=== PATIENT | female | born 1995 | race Caucasian/White ===

== ENCOUNTER 2018-12-15 11:54 | Emergency (ER) | payer OTHER, MEDICAID, SELFPAY ==
[2018-12-15 12:00] VITALS: BP 104/42; PULSE 87; RESP 12; TEMP 36.7; O2SAT 98
--- NOTE | 2018-12-15 12:05 | ED.ABDPAIN ---
HPI - Abdominal Pain General Chief Complaint: Abdominal Pain Stated Complaint: right side pain Time Seen by Provider: 12/15/18 11:56 Source: patient and EMS Mode of arrival: EMS Limitations: no limitations History of Present Illness HPI narrative: This is a 23-year-old female comes emergency department with complaint of right lower abdominal pain for about a week. Patient states it has been increasing in intensity. She denies any flank pain. Patient states it is intermittently sharp. Patient has not had any fevers she is aware of. She has had some nausea, she had 1 episode of vomiting. She has had normal bowel movements. She has had no dysuria frequency or urgency. Denies any vaginal bleeding or discharge. Patient has a history of endometriosis eczema and depression anxiety she had lab work at [facility] which showed a white count of 11.1, patient had negative urine for and dip. No major abnormalities on her chemistries. They did not have CT available and patient was transferred here for imaging and final disposition. Patient states she did received Toradol and Zofran with minimal improvement. She received fentanyl just prior to leaving the hospital which did make her quite sleepy although she continues to state that her pain was 10/10 and then would fall back asleep. Related Data Home Medications Medication Instructions Recorded Confirmed cetirizine 10 mg PO DAILY 12/15/18 12/15/18 epinephrine 0.3 mg IM PRN PRN 12/15/18 12/15/18 ferrous gluconate 324 mg PO BID 12/15/18 12/15/18 fluticasone propionate 1 spray INTRANASAL DAILY 12/15/18 12/15/18 levonorgestrel-ethinyl estrad 1 tab PO DAILY 12/15/18 12/15/18 [Devan (28)] sertraline 200 mg PO DAILY 12/15/18 Previous Rx's Medication Instructions Recorded hydrocodone-acetaminophen [[place]] 1 tab PO Q6H PRN #10 tab 12/15/18 Allergies Allergy/AdvReac Type Severity Reaction Status Date / Time garlic Allergy Severe Anaphylaxis Verified 12/15/18 12:02 Review of Systems Review of Systems ROS Unobtainable: All systems reviewed & are unremarkable except as noted in HPI and below Constitutional Constitutional: Denies chills, Denies fever(s), Denies lethargy and Denies weakness Cardiovascular Cardiovascular: Denies chest pain and Denies dyspnea Respiratory Respiratory: Denies dyspnea Gastrointestinal Gastrointestinal: Reports abdominal pain (Right lower quadrant pain), Denies melena, Denies hematochezia, Denies change in bowel habits, Denies change in stool character, Denies diarrhea, Reports nausea and Reports vomiting (X1) Genitourinary Genitourinary: Reports as per HPI, Denies abnormal vaginal bleeding, Denies hematuria, Denies urinary frequency, Denies dysuria, Denies pelvic pain, Denies flank pain, Denies urinary incontinence, Denies urinary hesitancy, Denies urinary urgency, Denies vaginal discharge and Denies vaginal odor Musculoskeletal Musculoskeletal: Denies back pain Neurologic Neurologic: Denies weakness [facility] Social History (Updated 12/15/18 @ 12:17 by Migdalia Ya DO) Smoking Status: Never smoker alcohol intake: current substance use type: does not use Exam Narrative Exam Narrative: GENERAL: Alert and oriented x three, morbidly obese female in moderate distress. HEENT: Head normocephalic, atraumatic, EOMI, pupils reactive, face symmetric, moist mucous membranes NECK: Supple, full range of motion CARDIOVASCULAR: Regular rate and rhythm without murmurs, rubs or gallops. RESPIRATORY: Breath sounds equal bilaterally, no wheezes rales or rhonchi. ABDOMEN: Soft, positive right lower quadrant tenderness. Normoactive bowel sounds all 4 quadrants. No guarding or rebound, rigidity, no mass. No hernia noted. : No CVA tenderness EXTREMITIES: Normal range of motion, no clubbing or edema. Neurovascularly intact NEUROLOGICAL: Cranial nerves II through XII grossly intact. Moving all extremities SKIN: Warm, dry, no petechiae, no rashes or lesions. Initial Vital Signs Initial Vital Signs: Vital Signs Temperature 98.1 F 12/15/18 12:00 Pulse Rate 87 12/15/18 12:00 Respiratory Rate 12 12/15/18 12:00 Blood Pressure 104/42 L 12/15/18 12:00 Pulse Oximetry 98 12/15/18 12:00 Course Orders Ordered: ED Orders 12/15/18 12:23 CT abdomen pelvis w con Stat Discontinued Medications Sodium Chloride (Normal Saline 0.9%) 1,000 mls @ 150 mls/hr IV CONT ENZO Last Infusion: 12/15/18 13:23 Dose: 0 mls/hr Documented by: Admin: 12/15/18 12:21 Dose: 150 mls/hr Documented by: SEGUN Morphine Sulfate (Morphine) 4 mg IV NOW ONE Stop: 12/15/18 12:02 Last Admin: 12/15/18 12:21 Dose: 4 mg Documented by: SEGUN Vital Signs Vital signs: Vital Signs - 8 hr 12/15/18 12:00 12/15/18 13:20 12/15/18 13:23 Temperature 98.1 F Pulse Rate 87 71 67 Respiratory Rate 12 15 Blood Pressure 104/42 L 119/70 Blood Pressure [Right Arm] 119/70 Pulse Oximetry 98 97 MDM - Abdominal Pain Lab Data Attestation: I reviewed the patient's lab results. Lab results narrative: CBC shows a low white count of 11, hemoglobin is 12.2 with a crit of 39, platelets are 399. Patient has lymphocytes elevated at 4.2. CMP shows sodium of 142, potassium of 4, chloride 105 and CO2 of 27 BUN is 13 with creatinine 0.8. Glucose is 93, LFTs are in normal range with a normal lipase. Patient has normal urine with no nitrates, no leuks no bilirubin or occult blood. No ketones or glucose is noted specific gravity is 1.015. And urine pH is 7. HCG is negative. Imaging Data US - abdomen: Radiologist's impression: Patient had outside bedside by EMPultrasound report preliminary is cholelithiasis without cholecystitis and fatty liver. CT scan - abdomen: Radiologist's impression: [place] [address] CT Scan Report Signed Patient: Jameson Patel [facility]#: [id number] : 1995Acct:[id number] Age/Sex: 23 / FDate of Service: 12/15/18 Loc: ED Accession Number: [id number] Procedure: CT abdomen pelvis w con Ordering Provider: Migdalia aY D.O. PROCEDURE: CT ABDOMEN PELVIS W CON INDICATIONS: RLQ pain, Creatinni 0.8 gfr 87, neg preg @ [place] TECHNIQUE: After the administration of intravenous contrast, 5 mm thick sections acquired from the diaphragm to the symphysis. 5 mm coronal and sagittal reformats were acquired. For radiation dose reduction, the following was used: automated exposure control, adjustment of mA and/or kV according to patient size. COMPARISON: None. FINDINGS: Image quality: Excellent. ABDOMEN: Lung bases: Lung bases are clear. Heart size is normal. Solid organs: Liver is normal in size and enhancement. Diffuse fatty infiltration of the liver. Gallbladder contains a calcified gallstone. Biliary system is non dilated. Pancreas enhances normally. Spleen is normal in size and enhancement. No adrenal nodules. Kidneys demonstrate normal size and enhancement, without hydronephrosis. Peritoneum and bowel: Bowel loops demonstrate normal wall thickness and caliber. No free fluid or air. The appendix is normal. Nodes and vessels: No retroperitoneal or mesenteric adenopathy by size criteria. Aorta and inferior vena cava are normal in size. Miscellaneous: A small fat containing umbilical hernia. PELVIS: Genitourinary: Bladder wall thickness is normal. Miscellaneous: No inguinal hernias or adenopathy. Bones: No suspicious bony lesions. No vertebral body compression fractures. IMPRESSION: 1. No acute disease process. 2. The appendix is normal. 3. No free fluid or free air. 4. No dilated loops of bowel. 5. Hepatic steatosis. 6. Cholelithiasis. Dictated by: Natty Pham MD, PhD on 12/15/2018 at 12:17 Approved by: Natty Pham MD, PhD on 12/15/2018 at 12:21 [facility] Narrative Medical decision making narrative: Patient has cholelithiasis on her CT but no signs of cholecystitis. LFTs and abdominal labs are normal. White count is 11, patient has been afebrile for at least 12+ hours at the other hospital as well as here. She is tender really in her right lower quadrant only minimally in her right upper quadrant. So my suspicion that her gallstones is causing her pain is lower. She states she has been diagnosed with endometriosis in the past this is potentially causing her pain but no other acute intra-abdominal findings are found today. She does have some hepatic steatosis which she was aware of. Discussed with patient and family we did give her referral for General surgery for her gallstones. Patient was given a short-term script for narcotic pain medication as well as recommendations to continue ibuprofen as needed and reasons to return emergently. Discussed findings with General surgery, they will follow with patient as outpatient. Discharge Plan Departure Patient Disposition: Home Clinical Impression: Abdominal pain, Hepatic steatosis, Cholelithiases Discharge Date/Time: 12/15/18 13:24 Instructions: DI for Gallstones, DI for Nonalcoholic Fatty Liver Disease Activity Restrictions/Additional Instructions: Follow up with general surgery in the next week for recheck. Call for an appointment. You may take ibuprofen up to 800mg every 8 hours as needed for pain. You may take medication as prescribed for pain, this medication can make you sleepy do not drive, perform hazardous activities or make any major decisions while taking it. Return to the emergency department for fevers greater than 100.4 F, persistent vomiting, lightheadedness, passing out, black or bloody stools or other new or concerning symptoms. Prescriptions: New hydrocodone-acetaminophen [[place]] 5-325 mg tablet 1 tab PO Q6H PRN (Reason: pain) Qty: 10 RF: 0 No Action cetirizine 10 mg tablet 10 mg PO DAILY RF: 0 sertraline 100 mg tablet 200 mg PO DAILY RF: 0 levonorgestrel-ethinyl estrad [[place] (28)] 0.15-0.03 mg tablet 1 tab PO DAILY RF: 0 epinephrine 0.3 mg/0.3 mL auto-injector 0.3 mg IM PRN PRN (Reason: Allergic Reaction) RF: 0 fluticasone propionate 50 mcg/actuation spray,suspension 1 spray INTRANASAL DAILY RF: 0 ferrous gluconate 324 mg (38 mg iron) tablet 324 mg PO BID RF: 0 Referrals: Pete Tian MD [Physician] -
[2018-12-15] MEDS: MORPHINE 4 MG/ML INJ IV (12:21)
[2018-12-15] MEDS: SODIUM CHLORIDE 0.9% 1,000 ML 150 ML IV (12:21)
--- NOTE | 2018-12-15 12:23 | DI.CT.S_ITS ---
PROCEDURE: CT ABDOMEN PELVIS W CON INDICATIONS: RLQ pain, Creatinni 0.8 gfr 87, neg preg @ [place] TECHNIQUE: After the administration of intravenous contrast, 5 mm thick sections acquired from the diaphragm to the symphysis. 5 mm coronal and sagittal reformats were acquired. For radiation dose reduction, the following was used: automated exposure control, adjustment of mA and/or kV according to patient size. COMPARISON: None. FINDINGS: Image quality: Excellent. ABDOMEN: Lung bases: Lung bases are clear. Heart size is normal. Solid organs: Liver is normal in size and enhancement. Diffuse fatty infiltration of the liver. Gallbladder contains a calcified gallstone. Biliary system is non dilated. Pancreas enhances normally. Spleen is normal in size and enhancement. No adrenal nodules. Kidneys demonstrate normal size and enhancement, without hydronephrosis. Peritoneum and bowel: Bowel loops demonstrate normal wall thickness and caliber. No free fluid or air. The appendix is normal. Nodes and vessels: No retroperitoneal or mesenteric adenopathy by size criteria. Aorta and inferior vena cava are normal in size. Miscellaneous: A small fat containing umbilical hernia. PELVIS: Genitourinary: Bladder wall thickness is normal. Miscellaneous: No inguinal hernias or adenopathy. Bones: No suspicious bony lesions. No vertebral body compression fractures. IMPRESSION: 1. No acute disease process. 2. The appendix is normal. 3. No free fluid or free air. 4. No dilated loops of bowel. 5. Hepatic steatosis. 6. Cholelithiasis. Dictated by: Natty Pham MD, PhD on 12/15/2018 at 12:17 Approved by: Natty Pham MD, PhD on 12/15/2018 at 12:21
[2018-12-15 13:20] VITALS: BP 119/70; PULSE 71
[2018-12-15 13:23] VITALS: BP 119/70; PULSE 67; RESP 15; O2SAT 97
== END 2018-12-15 13:24 | disposition home or self-care (01) ==
PROVIDERS: Emergency Provider Emergency Medicine
DX: K76.0 Fatty (change of) liver, not elsewhere classified (principal); K80.20 Calculus of gallbladder without cholecystitis without obstruction
CPT/HCPCS: 74177; 96361; 96374; 99283; 99285; J2270; Q9967

== ENCOUNTER 2018-12-18 15:21 | Emergency (ER) | payer OTHER, MEDICAID, SELFPAY ==
[2018-12-18 15:41] VITALS: BP 140/90; PULSE 71; RESP 16; TEMP 37.6; O2SAT 99; BMI 47.9
[2018-12-18 16:14] LABS: Bacteria Urine None Seen
[2018-12-18 16:25] LABS: Culture Indicated Urine Specimen Cultured; RBC Urine 30-100/HPF (0-5/HPF); Squamous Epithelial Cell Urine 0-1 /HPF (0-5/HPF); WBC Urine 0-1/HPF (0-5/HPF)
[2018-12-18 16:45] LABS: Add Manual Diff / Slide Review NO; Basophils Absolute Auto 100 /uL (0-100); Basophils Percent Auto 0.6 % (0-2); Eosinophils Absolute Auto 200 /uL (0-450); Eosinophils Percent Auto 1.8 % (2-4); Hematocrit 38.6 % (36-46); Hemoglobin 12.6 g/dL (12.0-16.0); Lymphocytes Absolute Auto 3000 /uL (1100-4500); Lymphocytes Percent Auto 32.9 % (25-40); Mean Corpuscular HGB Conc 32.5 % (30-36); Mean Corpuscular Hemoglobin 24.6 PG (26-34); Mean Corpuscular Volume 75.6 fL (80-100); Monocytes Absolute Auto 600 /uL (0-900); Monocytes Percent Auto 6.4 % (3-14); Neutrophils Absolute Auto 5400 /uL (1500-7000); Neutrophils Percent Auto 58.3 % (50-75); Platelet Count 410 X10^3/uL (150-400); Red Cell Distribution Width 16.3 % (11.6-14.8); White Blood Cell Count 9.3 X10^3/uL (4.5-11.0)
[2018-12-18] MEDS: ONDANSETRON 4 MG/2 ML INJ IV (16:48)
[2018-12-18] MEDS: SODIUM CHLORIDE 0.9% 1,000 ML 1000 ML IV (16:48)
[2018-12-18 16:50] LABS: INR 1.1 (0.9-1.3); Prothrombin Time 12.8 SECONDS (10.1-12.7)
[2018-12-18 16:53] LABS: PTT Partial Thromboplastin Tim 40 SECONDS (26.4-36.2)
[2018-12-18 16:54] LABS: Alanine Aminotransferase 32 IU/L (9-52); Albumin 4.5 g/dL (3.5-5.0); Albumin Globulin Ratio 1.3 (1.0-2.8); Alkaline Phosphatase 116 U/L (38-126); Aspartate Aminotransferase 33 IU/L (14-36); BUN Creatinine Ratio 11.4 (6-22); Bilirubin Total 0.5 mg/dL (0.2-1.3); Blood Urea Nitrogen 8 mg/dL (7-17); Carbon Dioxide 27 mmol/L (22-32); Chloride 102 mmol/L (98-107); Estimated Glomerular Filt Rate > 60.0 mL/min (>60); Globulin 3.4 g/dL (1.7-4.1); Glucose 87 mg/dL (70-100); HEMOLYSIS < 15 (0-50); Lipase 58 U/L (23-300); Potassium 3.9 mmol/L (3.4-5.1); Sodium 142 mmol/L (137-145); Total Protein 7.9 g/dL (6.3-8.2)
--- NOTE | 2018-12-18 17:02 | ED_ITS ---
HPI - Abdominal Pain General Chief Complaint: Abdominal Pain Stated Complaint: right side abdominal pain Time Seen by Provider: 12/18/18 17:01 Source: patient Mode of arrival: ambulatory Limitations: no limitations History of Present Illness HPI narrative: Patient is a 23-year-old female who presents with right-sided lateral pain ongoing for 1 week. She was seen evaluated at [facility] she actually had a CT here because our CT scanner was down. No sign of appendicitis or kidney stone she was given hydrocodone to go home with she continues to have pain. It does not radiate is at hurts every time she moves breathes or coughs. She was noted to have cholelithiasis but she does not have any right upper q uadrant pain. MD complaint: abdominal pain Onset (ago): week(s) Pain Consistency: constant Related Data Home Medications Medication Instructions Recorded Confirmed cetirizine 10 mg PO DAILY 12/15/18 12/15/18 epinephrine 0.3 mg IM PRN PRN 12/15/18 12/15/18 ferrous gluconate 324 mg PO BID 12/15/18 12/15/18 fluticasone propionate 1 spray INTRANASAL DAILY 12/15/18 12/15/18 levonorgestrel-ethinyl estrad 1 tab PO DAILY 12/15/18 12/15/18 [Devan (28)] sertraline 200 mg PO DAILY 12/15/18 Previous Rx's Medication Instructions Recorded hydrocodone-acetaminophen [[place]] 1 tab PO Q6H PRN #10 tab 12/15/18 Allergies Allergy/AdvReac Type Severity Reaction Status Date / Time garlic Allergy Severe Anaphylaxis Verified 12/15/18 12:02 Review of Systems Review of Systems Narrative: GENERAL: Denies chills, fatigue, malaise, fever, sweats, travel HEENT: Denies sinus pain, ear pain, sore throat, difficulty swallowing, neck pain RESPIRATORY: Denies dyspnea, cough, wheezing, hemoptysis, sputum. CARDIOVASCULAR: Denies chest pain, palpitations, orthopnea, edema GASTROINTESTINAL: See HPI : Denies dysuria, frequency, incontinence, hematuria, urinary retention, flank pain. MUSCULOSKELETAL: Denies weakness, joint pain, or bony pain SKIN: No rash, no erythema, no pruritus NEUROLOGIC: Denies weakness, dizziness, headache, numbness, change in speech, confusion PSYCHIATRIC: No concerning psychosocial issues. 12 point review of systems is negative except for those stated above and HPI [facility] Social History (Updated 12/15/18 @ 12:17 by Migdalia Ya DO) Smoking Status: Never smoker alcohol intake: current substance use type: does not use Exam Initial Vital Signs Initial Vital Signs: Vital Signs Temperature 99.7 F H 12/18/18 15:41 Pulse Rate 71 12/18/18 15:41 Respiratory Rate 16 12/18/18 15:41 Blood Pressure 140/90 12/18/18 15:41 Pulse Oximetry 99 12/18/18 15:41 GENERAL: Overweight well-appearing young female and in no acute distress. HEENT: Head atraumatic,EOMI, pupils reactive, face symmetric CARDIOVASCULAR: Regular rate and rhythm without murmurs, rubs or gallops. RESPIRATORY: Breath sounds equal bilaterally, no wheezes rales or rhonchi. ABDOMEN: Soft, pain right lateral sided no right lower quadrant pain no guarding no rebound no right upper quadrant pain negative Buck sign : No CVA tenderness EXTREMITIES: Normal range of motion, no clubbing or edema. Neurovascularly intact NEUROLOGICAL: Alert and oriented x4.Normal gait and speech. Cranial nerves II through XII grossly intact. SKIN: Warm, dry, no laceration, no petechiae, no rashes or lesions. Course Orders Ordered: ED Orders 12/18/18 16:00 Urine Culture Stat Urine Microscopic Stat 12/18/18 16:34 Complete Blood Count AUTO DIFF Stat Comprehensive Metabolic Panel Stat Lipase Stat Partial Thromboplastin Time Stat Prothrombin Time INR Stat Discontinued Medications Sodium Chloride (Normal Saline 0.9%) 1,000 mls @ 1,000 mls/hr IV BOLUS ONE Stop: 12/18/18 17:19 Last Admin: 12/18/18 16:48 Dose: 1,000 mls/hr Documented by: MIHIR Ketorolac Tromethamine (Toradol) 30 mg IV NOW ONE Stop: 12/18/18 17:07 Last Admin: 12/18/18 17:23 Dose: 30 mg Documented by: BRISSA Morphine Sulfate (Morphine) 4 mg IV NOW ONE Stop: 12/18/18 18:05 Last Admin: 12/18/18 18:07 Dose: 4 mg Documented by: MIHIR Ondansetron HCl (Zofran) 4 mg IV NOW ONE Stop: 12/18/18 16:20 Last Admin: 12/18/18 16:48 Dose: 4 mg Documented by: HFARRINGTO Vital Signs Vital signs: Vital Signs - 8 hr 12/18/18 15:41 12/18/18 18:41 Temperature 99.7 F H Pulse Rate 71 88 Respiratory Rate 16 19 Blood Pressure 140/90 138/92 H Pulse Oximetry 99 97 MDM - Abdominal Pain Lab Data Attestation: I reviewed the patient's lab results. Result diagrams: 12/18/18 16:34 12/18/18 16:34 Labs: Lab Results 12/18/18 12/18/18 12/18/18 Range/Units 16:00 16:34 16:34 WBC 9.3 (4.5-11.0) X10^3/uL RBC 5.10 (4.0-5.2) X10^6/uL Hgb 12.6 (12.0-16.0) g/dL Hct 38.6 (36-46) % MCV 75.6 L (80-100) fL MCH 24.6 L (26-34) PG MCHC 32.5 (30-36) % RDW 16.3 H (11.6-14.8) % Plt Count 410 H (150-400) X10^3/uL Neut % (Auto) 58.3 (50-75) % Lymph % (Auto) 32.9 (25-40) % Parmer % (Auto) 6.4 (3-14) % Eos % (Auto) 1.8 L (2-4) % Baso % (Auto) 0.6 (0-2) % Neut # (Auto) 5400 (4803-6472) /uL Lymph # (Auto) 3000 (2612-6310) /uL Parmer # (Auto) 600 (0-900) /uL Eos # (Auto) 200 (0-450) /uL Baso # (Auto) 100 (0-100) /uL PT 12.8 H (10.1-12.7) SECONDS INR 1.1 (0.9-1.3) APTT 40 H (26.4-36.2) SECONDS Sodium (137-145) mmol/L Potassium (3.4-5.1) mmol/L Chloride (98-107) mmol/L Carbon Dioxide (22-32) mmol/L BUN (7-17) mg/dL Creatinine (0.52-1.04) mg/dL Estimated GFR (>60) mL/min BUN/Creatinine Ratio (6-22) Glucose (70-100) mg/dL Calcium (8.4-10.2) mg/dL Total Bilirubin (0.2-1.3) mg/dL AST (14-36) IU/L ALT (9-52) IU/L Alkaline Phosphatase (38-126) U/L Total Protein (6.3-8.2) g/dL Albumin (3.5-5.0) g/dL Globulin (1.7-4.1) g/dL Albumin/Globulin Ratio (1.0-2.8) Lipase (23-300) U/L Urine RBC 30-100/hpf H (0-5/HPF) Urine WBC 0-1/hpf (0-5/HPF) Ur Squamous Epith Cells 0-1 /hpf (0-5/HPF) Urine Bacteria None seen (None) Ur Culture Indicated? Specimen cultured 12/18/18 Range/Units 16:34 WBC (4.5-11.0) X10^3/uL RBC (4.0-5.2) X10^6/uL Hgb (12.0-16.0) g/dL Hct (36-46) % MCV (80-100) fL MCH (26-34) PG MCHC (30-36) % RDW (11.6-14.8) % Plt Count (150-400) X10^3/uL Neut % (Auto) (50-75) % Lymph % (Auto) (25-40) % Parmer % (Auto) (3-14) % Eos % (Auto) (2-4) % Baso % (Auto) (0-2) % Neut # (Auto) (5658-9864) /uL Lymph # (Auto) (6860-5543) /uL Parmer # (Auto) (0-900) /uL Eos # (Auto) (0-450) /uL Baso # (Auto) (0-100) /uL PT (10.1-12.7) SECONDS INR (0.9-1.3) APTT (26.4-36.2) SECONDS Sodium 142 (137-145) mmol/L Potassium 3.9 (3.4-5.1) mmol/L Chloride 102 (98-107) mmol/L Carbon Dioxide 27 (22-32) mmol/L BUN 8 (7-17) mg/dL Creatinine 0.70 (0.52-1.04) mg/dL Estimated GFR > 60.0 (>60) mL/min BUN/Creatinine Ratio 11.4 (6-22) Glucose 87 (70-100) mg/dL Calcium 10.0 (8.4-10.2) mg/dL Total Bilirubin 0.5 (0.2-1.3) mg/dL AST 33 (14-36) IU/L ALT 32 (9-52) IU/L Alkaline Phosphatase 116 (38-126) U/L Total Protein 7.9 (6.3-8.2) g/dL Albumin 4.5 (3.5-5.0) g/dL Globulin 3.4 (1.7-4.1) g/dL Albumin/Globulin Ratio 1.3 (1.0-2.8) Lipase 58 (23-300) U/L Urine RBC (0-5/HPF) Urine WBC (0-5/HPF) Ur Squamous Epith Cells (0-5/HPF) Urine Bacteria (None) Ur Culture Indicated? Point of care testing: Point of Care Testing Test Results Negative Urine Dip Bedside Urine Glucose Negative Bedside Urine Bilirubin - Negative Bedside Urine Ketone - Negative Urine Specific Mcallister 1.015 Bedside Urine Occult Blood +++ Bedside Urine pH 6.0 Bedside Urine Protein +/- 15 Bedside Urine Urobilinogen - Negative Bedside Urine Nitrite - Negative Bedside Urine Leukocytes +/- 15 Esterase MDM Narrative Medical decision making narrative: I have reviewed patient's CT from 4 days ago it showed a normal appendix no hydronephrosis or any sign of kidney stone. She does have blood in her urine today but is currently on her menses. She initially was given Toradol and said in help much pain she is given another dose of morphine. She has no leukocytosis no sign of infection. She does have known cholelithiasis however no right upper quadrant pain at this time I do not believe this to be causing her pain. She has normal liver enzymes and normal bilirubin. No need for emergent cholecystectomy. At this time I recommend outpatient pain control and further outpatient workup. Also patient's pain hurts with movement breathing this is more likely musculoskeletal. Discharge Plan Departure Patient Disposition: Home Clinical Impression: Abdominal pain Qualifiers: Abdominal location: right lower quadrant Qualified Code(s): R10.31 - Right lower quadrant pain Discharge Date/Time: 12/18/18 18:42 Instructions: DI for Abdominal Muscle Strain Activity Restrictions/Additional Instructions: *You have been diagnosed with abdominal pain *What to do: Blood work today is reassuring. CT scan from 4 days ago did not show any sign of appendicitis or kidney stone. This might be related to a muscle strain. You do have gallstones in your gallbladder. He will require surgery for her gallbladder at some point however it is not emergent at this time. *Continue to take medications as directed *Follow up with your primary care provider in 2-3 days *Return to ER if you should have persistent vomiting, worsening pain or any new, worsening or concerning symptoms Prescriptions: No Action cetirizine 10 mg tablet 10 mg PO DAILY RF: 0 sertraline 100 mg tablet 200 mg PO DAILY RF: 0 levonorgestrel-ethinyl estrad [[place] (28)] 0.15-0.03 mg tablet 1 tab PO DAILY RF: 0 epinephrine 0.3 mg/0.3 mL auto-injector 0.3 mg IM PRN PRN (Reason: Allergic Reaction) RF: 0 fluticasone propionate 50 mcg/actuation spray,suspension 1 spray INTRANASAL DAILY RF: 0 ferrous gluconate 324 mg (38 mg iron) tablet 324 mg PO BID RF: 0 hydrocodone-acetaminophen [[place]] 5-325 mg tablet 1 tab PO Q6H PRN (Reason: pain) Qty: 10 RF: 0 Referrals: [facility] [Provider Group] [facility] [Outside]
[2018-12-18] MEDS: KETOROLAC 60 MG/2 ML VIAL 30 MG IV (17:23)
[2018-12-18] MEDS: MORPHINE 4 MG/ML INJ IV (18:07)
[2018-12-18 18:41] VITALS: BP 138/92; PULSE 88; RESP 19; O2SAT 97
== END 2018-12-18 18:42 | disposition home or self-care (01) ==
PROVIDERS: Emergency Provider Emergency Medicine
DX: R10.31 Right lower quadrant pain (principal)
CPT/HCPCS: 36591; 80053; 81003; 81015; 81025; 83690; 85025; 85610; 85730; 87086; 96374; 96375; 99282; 99284; J1885; J2270; J2405

== ENCOUNTER → 2019-01-25 09:44 | Outpatient (CLI) | payer OTHER, MEDICAID, SELFPAY ==
--- NOTE | 2019-01-25 09:46 | DI.NM.S_ITS ---
PROCEDURE: NM HIDA WITH CCK PHARMACEUTICAL: 5.1 mCi Tc-99m mebrofenin IV; 3.0 mcg CCK IV. INDICATIONS: biliary dyskinesia TECHNIQUE: Following intravenous administration of Tc-99m mebrofenin, sequential anterior abdominal images were obtained. To evaluate the contractile response of the gallbladder in response to Cholecystokinin (CCK), sincalide (0.02 ?g/kg) was administered by slow intravenous infusion approximately 60 minutes after the administration of the radiopharmaceutical. Sequential imaging was continued for 30 minutes after the start of CCK infusion. Gallbladder ejection fraction was calculated. COMPARISON: , CT, CT ABDOMEN PELVIS W CON, 12/15/2018, 12:03. FINDINGS: Biliary scan: There is normal tracer uptake and excretion by the liver. There is normal visualization of the intrahepatic ducts, common bile duct, and gallbladder. There is normal tracer transit into the duodenum. CCK stimulation: There is expected contractile response of the gallbladder to CCK infusion. The calculated gallbladder ejection fraction is 62%; normal values are above 35%. It has been shown that any patient abdominal pain after CCK administration is related to the rate of CCK injection, rather than to any underlying gallbladder disease (Clinical Nuclear Medicine 2012; 37: 63-70. Journal of Nuclear Medicine 2014; 55: 1-9). IMPRESSION: Normal examination. Normal gallbladder ejection fraction. Dictated by: Brandon Cuello M.D. on 01/25/2019 at 13:12 Approved by: Brandon Cuello M.D. on 01/25/2019 at 13:13
== END ==
PROVIDERS: PCP Nurse Practitioner Gerontology; Visit Provider Surgery
DX: K82.8 Other specified diseases of gallbladder (principal); R10.9 Unspecified abdominal pain
CPT/HCPCS: 78227; A9537; J2805

== ENCOUNTER → 2019-02-16 13:22 | Outpatient (CLI) | payer OTHER, MEDICAID, SELFPAY | PROVIDERS: PCP Nurse Practitioner Gerontology; Visit Provider Surgery | DX: R19.7 Diarrhea, unspecified (principal) | CPT/HCPCS: 87045; 87899 ==

== ENCOUNTER → 2022-02-09 14:36 | Outpatient (CLI) | payer OTHER, MEDICAID, SELFPAY | PROVIDERS: Referring Provider Internal Medicine; Visit Provider Internal Medicine | DX: Z23 Encounter for immunization (principal) | CPT/HCPCS: 90471; 90686 ==

== ENCOUNTER 2022-07-26 23:17 | Emergency (ER) | payer OTHER, MEDICAID, SELFPAY ==
[2022-07-26 23:20] VITALS: O2SAT 94
[2022-07-26 23:21] VITALS: BP 167/89; PULSE 90; RESP 18; O2SAT 95
[2022-07-26 23:27] VITALS: BP 167/89; PULSE 90; RESP 20; TEMP 36.7; O2SAT 96; BMI 54.8
[2022-07-26 23:30] VITALS: PULSE 82; O2SAT 94
--- NOTE | 2022-07-26 23:34 | ED_ITS ---
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 She is well aware of this and tries to avoid all garlic but today had some pizza at work and then developed chest tightness and lip tingling. She took 75 mg of Benadryl but felt symptoms were progressing and presents to the emergency room. She is able to speak in full sentences, has no stridor and no audible wheeze. Her face is somewhat flushed which is consistent with prior exposures to garlic as well. She does have an EpiPen available however it is . She is been otherwise well Related Data Home Medications Medication Instructions Recorded Confirmed cetirizine 10 mg tablet 10 mg PO DAILY 12/15/18 12/21/18 epinephrine 0.3 mg/0.3 mL 0.3 mg IM PRN PRN Allergic Reaction 12/15/18 12/21/18 injection, auto-injector ferrous gluconate 324 mg (38 mg 324 mg PO BID 12/15/18 12/21/18 iron) tablet fluticasone propionate 50 1 spray intranasal DAILY 12/15/18 12/21/18 mcg/actuation nasal spray,suspension levonorgestrel 0.15 mg-ethinyl 1 tab PO DAILY 12/15/18 12/21/18 estradiol 0.03 mg tablet (Devan (28)) sertraline 100 mg tablet 200 mg PO DAILY 12/15/18 12/21/18 Previous Rx's Medication Instructions Recorded hydrocodone 5 mg-acetaminophen 325 1 tab PO Q6H PRN pain #10 tabs 12/15/18 mg tablet ([place]) cetirizine 10 mg tablet 10 mg PO DAILY PRN allergy 07/27/22 symptoms #30 tabs epinephrine 0.3 mg/0.3 mL 0.3 mg (0.3 mL) IM Q5-15M PRN 07/27/22 injection syringe anaphylaxis #2 ea prednisone 20 mg tablet 20 mg PO DAILY #5 tabs 07/27/22 Allergies Allergy/AdvReac Type Severity Reaction Status Date / Time garlic Allergy Severe Anaphylaxis Verified 12/21/18 10:03 Review of Systems Review of Systems Narrative: Pertinent positive and negative findings as per HPI Patient History Social History Smoking Status: Never smoker alcohol intake: current substance use type: does not use Smoking Status: Never smoker Substance Use Type: does not use Exam Initial Vital Signs Initial Vital Signs: Vital Signs Pulse Oximetry 94 07/26/22 23:20 General: Healthy appearing, in no acute distress. Able to give a complete and coherent history. Well-nourished well-developed HEENT: Moist mucous membranes, normal sclera with reactive pupils, flushed cheeks. No swelling to the lips or tongue. Respiratory: Lungs are clear to auscultation, no wheezing no rales no rhonchi. Full and symmetrical air movement Cardiac: Mild tachycardia with no murmurs no bruits Abdomen: Soft, nontender, good bowel tones, no flank pain Skin: Warm and dry, flushed cheeks Neurologic: Grossly neurologically intact with no obvious asymmetries or abnormalities Extremities: No trauma, well perfused Psych: Cooperative, appropriate insight and affect Course Orders Ordered: Discontinued Medications Famotidine (Famotidine 20 Mg/2 Ml Vial) 20 mg IV NOW [facility] Famotidine (Famotidine 20 Mg/2 Ml Vial) 20 mg IV NOW STA Stop: 07/26/22 23:35 Last Admin: 07/26/22 23:39 Dose: 20 mg Documented By: NANI Methylprednisolone (Methylprednisolone 125 Mg/2 Ml Vial) 125 mg IV NOW ONE Stop: 07/26/22 23:33 Last Admin: 07/27/22 00:12 Dose: Not Given Documented By: NANI Methylprednisolone (Methylprednisolone 125 Mg/2 Ml Vial) 125 mg IV NOW STA Stop: 07/26/22 23:34 Last Admin: 07/26/22 23:38 Dose: 125 mg Documented By: NANI Vital Signs Vital signs: Vital Signs - 8 hr 07/26/22 23:27 07/26/22 23:20 07/26/22 23:21 Temperature 98.1 F Pulse Rate 90 90 Respiratory Rate 20 18 Blood Pressure 167/89 H Pulse Oximetry 96 94 95 Oxygen Delivery Method Room Air 07/26/22 23:21 07/26/22 23:30 07/27/22 00:00 Temperature Pulse Rate 82 80 Respiratory Rate Blood Pressure 167/89 H Pulse Oximetry 94 95 Oxygen Delivery Method MDM - Allergic Reaction MDM Narrative Medical decision making narrative: CC: Allergic reaction to garlic Complicating co-morbidities: Known severe reactions to garlic, Data collected from: patient Differential considered: Simply allergic reaction, anaphylaxis, respiratory compromise Exam documented above, pertinent findings include: No wheezing, no stridor, able to speak in full sentences, no obvious pharyngeal swelling or lip swelling Treatments: Patient has taken 75 mg of oral Benadryl prior to arrival. She is given 125 mg of IV Solu-Medrol and IV Pepcid. Re-evaluations:After 90 minutes of observation she is feeling significantly improved. She is able to easily walk around the emergency department multiple times without wheezing, chest tightness, any exacerbation of symptoms Discussion: Patient with reaction to garlic after a bite of pizza. She received steroids and IV Pepcid in the emergency department after oral Benadryl prior to arrival. At this point symptoms have entirely resolved and she would prefer to return to work. Given that she actually is not sleepy or impaired after the Benadryl I believe that this is reasonable. Will request that she restart her sertraline 10 mg daily for the next week and 20 mg of prednisone daily for the next 5 days to prevent any recurrent reactions. Her EpiPen is refilled. Encouraged her to return to the emergency department if symptoms worsen. Discharge Plan Departure Patient Disposition: Home Clinical Impression: Allergic reaction Qualifiers: Encounter type: initial encounter Qualified Code(s): T78.40XA - Allergy, unspecified, initial encounter Instructions: DI for Adverse Drug Reaction -- Allergic Activity Restrictions/Additional Instructions: Thank you for coming in tonight, I am sorry it was as the patient rather than as staff. Taking the Benadryl prior to arrival was absolutely appropriate. In the emergency department you were given 125 mg of Solu-Medrol, steroid. You were also given IV Pepcid an additional H2 lorelei. I would recommend daily cetirizine for the next week to prevent any recurrent symptoms. I am also going to give you a prescription for 5 additional days of prednisone at 20 mg daily. I have refilled your EpiPen prescription All prescriptions have been electronically transmitted to [facility] in [place] Your blood pressure was significantly elevated in the ER this evening. One ER visit does not make a diagnosis of hypertension however, I would recommend that you check your blood pressure when you are not having an acute allergic reaction to see where your numbers are running. Please keep track of these and schedule a follow-up appointment with your primary care physician to discuss elevated blood pressures. If you find that you are getting worse or develop any new symptoms, please feel free to return to the emergency department for further evaluation. Prescriptions: New cetirizine 10 mg tablet 10 mg PO DAILY PRN (Reason: allergy symptoms) Qty: 30 0RF prednisone 20 mg tablet 20 mg PO DAILY Qty: 5 0RF epinephrine 0.3 mg/0.3 mL syringe 0.3 mg IM Q5-15M PRN (Reason: anaphylaxis) Qty: 2 0RF Rx Instructions: do not exceed 3 doses per episode No Action cetirizine 10 mg tablet 10 mg PO DAILY sertraline 100 mg tablet 200 mg PO DAILY levonorgestrel-ethinyl estrad [[place] (28)] 0.15-0.03 mg tablet 1 tab PO DAILY epinephrine 0.3 mg/0.3 mL auto-injector 0.3 mg IM PRN PRN (Reason: Allergic Reaction) Patient Comments: INJECT 0.3MG ONCE NEEDED FOR ANAPHYLAXIS fluticasone propionate 50 mcg/actuation spray,suspension 1 spray INTRANASAL DAILY ferrous gluconate 324 mg (38 mg iron) tablet 324 mg PO BID Patient Comments: TAKE 1 TABLET BY MOUTH TWICE DAILY hydrocodone-acetaminophen [[place]] 5-325 mg tablet 1 tab PO Q6H PRN (Reason: pain) Qty: 10 0RF Referrals: Zenaida Macdonald PA-C [Primary Care Provider] - Stand Alone Forms: Patient Portal/API
[2022-07-26] MEDS: methylPREDNISolone 125 MG/2 ML VIAL IV (23:38)
[2022-07-26] MEDS: FAMOTIDINE 20 MG/2 ML VIAL IV (23:39)
[2022-07-27] VITALS (7 sets, daily range): BP systolic 155–169; BP diastolic 103–108; PULSE 80–94; RESP 18; O2SAT 95–96
== END 2022-07-27 01:29 | disposition home or self-care (01) ==
PROVIDERS: Emergency Provider Emergency Medicine; PCP Physician Assistant Medical
DX: T78.40XA Allergy, unspecified, initial encounter (principal); R07.9 Chest pain, unspecified
CPT/HCPCS: 96374; 96375; 99283; 99284; J2930

== ENCOUNTER → 2023-03-11 11:00 | Outpatient (CLI) | payer OTHER, SELFPAY | PROVIDERS: PCP Physician Assistant Medical; Referring Provider Family Medicine; Visit Provider Family Medicine | DX: Z23 Encounter for immunization (principal) | CPT/HCPCS: 90471; 90686 ==

== ENCOUNTER 2023-04-21 07:20 | Emergency (ER) | payer OTHER, SELFPAY ==
[2023-04-21 07:25] VITALS: BP 180/86; PULSE 87; RESP 18; TEMP 37.1; O2SAT 98; BMI 55.5
--- NOTE | 2023-04-21 07:29 | ED.LOWEXIN ---
HPI - Extremity Injury (Lower) General Chief Complaint: Fall Stated Complaint: fell down and hurt knee Time Seen by Provider: 04/21/23 07:28 Source: patient, RN notes reviewed and old records reviewed Mode of arrival: Ambulatory Limitations: no limitations History of Present Illness HPI Narrative: 28-year-old female with of ground level fall. Patient states she tripped and fell hitting her knees. She is pain particularly in her left knee slightly in the left ankle. Pain with ambulation. Patient denies any numbness tingling or other difficulties. Did not hit head and had no loss of consciousness. Patient does note she has had surgery on her knee before. 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 Denies any other injuries. Defers anything for pain. Related Data Home Medications Medication Instructions Recorded Confirmed cetirizine 10 mg tablet 10 mg PO DAILY 12/15/18 12/21/18 epinephrine 0.3 mg/0.3 mL 0.3 mg IM PRN PRN Allergic Reaction 12/15/18 12/21/18 injection, auto-injector ferrous gluconate 324 mg (38 mg 324 mg PO BID 12/15/18 12/21/18 iron) tablet fluticasone propionate 50 1 spray intranasal DAILY 12/15/18 12/21/18 mcg/actuation nasal spray,suspension levonorgestrel 0.15 mg-ethinyl 1 tab PO DAILY 12/15/18 12/21/18 estradiol 0.03 mg tablet (Devan (28)) sertraline 100 mg tablet 200 mg PO DAILY 12/15/18 12/21/18 Previous Rx's Medication Instructions Recorded hydrocodone 5 mg-acetaminophen 325 1 tab PO Q6H PRN pain #10 tabs 12/15/18 mg tablet ([place]) cetirizine 10 mg tablet 10 mg PO DAILY PRN allergy 07/27/22 symptoms #30 tabs epinephrine 0.3 mg/0.3 mL 0.3 mg (0.3 mL) IM Q5-15M PRN 07/27/22 injection syringe anaphylaxis #2 ea prednisone 20 mg tablet 20 mg PO DAILY #5 tabs 07/27/22 Allergies Allergy/AdvReac Type Severity Reaction Status Date / Time garlic Allergy Severe Anaphylaxis Verified 04/21/23 07:30 cat dander Allergy Verified 04/21/23 07:30 Review of Systems Review of Systems ROS Unobtainable: All systems reviewed & are unremarkable except as noted in HPI and below Patient History Social History Smoking Status: Never smoker alcohol intake: current substance use type: does not use Smoking Status: Never smoker Substance Use Type: does not use Exam Narrative Exam Narrative: GENERAL: Alert and oriented x three, female in mild distress. HEENT: Head normocephalic, atraumatic, EOMI, pupils reactive, face symmetric, moist mucous membranes NECK: Supple, full range of motion EXTREMITIES: Normal range of motion, no clubbing or edema. Neurovascularly intact. Patient has some mild tenderness over the left patella. Has full range of motion, no joint laxity normal valgus varus testing. Does have some pain with compression test. No laxity with anterior-posterior drawer but does have discomfort. No obvious ecchymosis or swelling. No other bony tenderness throughout the lower extremity. Cap refill less than 2 seconds. NEUROLOGICAL: Cranial nerves II through XII grossly intact. Moving all extremities SKIN: Warm, dry, no petechiae, no rashes or lesions. Initial Vital Signs Initial Vital Signs: Vital Signs Temperature 98.8 F 04/21/23 07:25 Pulse Rate 87 04/21/23 07:25 Respiratory Rate 18 04/21/23 07:25 Blood Pressure 180/86 H 04/21/23 07:25 Pulse Oximetry 98 04/21/23 07:25 Oxygen Delivery Method Room Air 04/21/23 07:25 Course Orders Ordered: Discontinued Medications Acetaminophen (Acetaminophen 325 Mg Tablet) 975 mg PO NOW ONE Stop: 04/21/23 08:26 Last Admin: 04/21/23 08:28 Dose: 975 mg Documented By: JASON Ibuprofen (Ibuprofen 400 Mg Tablet) 800 mg PO NOW ONE Stop: 04/21/23 08:26 Last Admin: 04/21/23 08:28 Dose: 800 mg Documented By: CTS Vital Signs Vital signs: Vital Signs - 8 hr 04/21/23 07:25 Temperature 98.8 F Pulse Rate 87 Respiratory Rate 18 Blood Pressure 180/86 H Pulse Oximetry 98 Oxygen Delivery Method Room Air MDM - Extremity Injury (Lower) Imaging Data Extremity x-ray #1: Radiologist's Impression: Close Knee X-Ray (Signed) Berenice Guerrero - 04/21/23 Hepatobiliary Scan Nuclear Medicine (Signed) Brandon Cuello - 01/25/19 Abdomen/Pelvis CT (Signed) AnkitNatty - 12/15/18 Launch?[address] [address] XRay Report Signed Patient: Jameson Patel MR#: [id number] : 1995 Acct:[id number] Age/Sex: 28 / F Date of Service: 04/21/23 Loc: ED Accession Number: [id number] Procedure: XR knee LT 3V Ordering Provider: Migdalia Ya D.O. PROCEDURE: XR KNEE LT 3V INDICATIONS: fall, left knee pain, hx remote knee surgery TECHNIQUE: 3 views of the knee were acquired. COMPARISON: None. FINDINGS: Bones: No fractures or dislocations. No suspicious bony lesions. Soft tissues: No joint effusion. No suspicious soft tissue calcifications. IMPRESSION: No acute bony abnormality or significant effusion. If pain persists, followup imaging in 5-7 days is recommended to exclude occult fracture. Dictated by: Berenice Guerrero M.D. on 04/21/2023 at 8:32 Approved by: Berenice Guerrero M.D. on 04/21/2023 at 8:32 Discharge Plan Departure Patient Disposition: Home Clinical Impression: Left knee sprain Instructions: DI for Knee Sprain Activity Restrictions/Additional Instructions: Follow-up in 7-10 days for recheck if your symptoms have not improved with L&I. You may weightbear as tolerated. You may take Tylenol up to a 1000 mg every 6 hours and/or ibuprofen up to 600 mg every 6 hours as needed for pain. Elevated affected body part to decrease swelling. OK to use ice pack on the affected body part. Use for 15-20 minutes each time, for 5-6x per day. If you develop worsening pain, numbness, tingling, discoloration of the affected body part adjust the wrap by loosening the ISIDORO wrap, and either see your doctor for an urgent re-assessment, or return to the Emergency Department. Return to the Emergency Department for any new or worsening symptoms. Prescriptions: No Action cetirizine 10 mg tablet 10 mg PO DAILY sertraline 100 mg tablet 200 mg PO DAILY levonorgestrel-ethinyl estrad [[place] (28)] 0.15-0.03 mg tablet 1 tab PO DAILY epinephrine 0.3 mg/0.3 mL auto-injector 0.3 mg IM PRN PRN (Reason: Allergic Reaction) Patient Comments: INJECT 0.3MG ONCE NEEDED FOR ANAPHYLAXIS fluticasone propionate 50 mcg/actuation spray,suspension 1 spray INTRANASAL DAILY ferrous gluconate 324 mg (38 mg iron) tablet 324 mg PO BID Patient Comments: TAKE 1 TABLET BY MOUTH TWICE DAILY hydrocodone-acetaminophen [[place]] 5-325 mg tablet 1 tab PO Q6H PRN (Reason: pain) Qty: 10 0RF cetirizine 10 mg tablet 10 mg PO DAILY PRN (Reason: allergy symptoms) Qty: 30 0RF prednisone 20 mg tablet 20 mg PO DAILY Qty: 5 0RF epinephrine 0.3 mg/0.3 mL syringe 0.3 mg IM Q5-15M PRN (Reason: anaphylaxis) Qty: 2 0RF Rx Instructions: do not exceed 3 doses per episode Referrals: Zenaida Macdonald PA-C [Primary Care Provider] - Stand Alone Forms: Patient Portal/API
--- NOTE | 2023-04-21 07:39 | DI.RAD.S_ITS ---
PROCEDURE: XR KNEE LT 3V INDICATIONS: fall, left knee pain, hx remote knee surgery TECHNIQUE: 3 views of the knee were acquired. COMPARISON: None. FINDINGS: Bones: No fractures or dislocations. No suspicious bony lesions. Soft tissues: No joint effusion. No suspicious soft tissue calcifications. IMPRESSION: No acute bony abnormality or significant effusion. If pain persists, followup imaging in 5-7 days is recommended to exclude occult fracture. Dictated by: Berenice Guerrero M.D. on 04/21/2023 at 8:32 Approved by: Berenice Guerrero M.D. on 04/21/2023 at 8:32
[2023-04-21] MEDS: IBUPROFEN 400 MG TABLET 800 MG PO (08:28)
[2023-04-21] MEDS: ACETAMINOPHEN 325 MG TABLET 975 MG PO (08:28)
== END 2023-04-21 09:15 | disposition home or self-care (01) ==
PROVIDERS: Emergency Provider Emergency Medicine; PCP Physician Assistant Medical
DX: S83.92XA Sprain of unspecified site of left knee, initial encounter (principal); W01.0XXA Fall on same level from slipping, tripping and stumbling without subsequent striking against object, initial encounter
CPT/HCPCS: 73562; 99283

== ENCOUNTER → 2023-12-24 07:11 | Outpatient (CLI) | payer OTHER, SELFPAY ==
[2023-12-24 08:17] LABS: Add Manual Diff / Slide Review NO; Basophils Absolute Auto 100 /uL (0-100); Basophils Percent Auto 0.5 % (0-2); Eosinophils Absolute Auto 600 /uL (0-450); Eosinophils Percent Auto 5.9 % (2-4); Hematocrit 36.2 % (36-46); Hemoglobin 11.9 g/dL (12.0-16.0); Lymphocytes Absolute Auto 3200 /uL (1100-4500); Lymphocytes Percent Auto 33.2 % (25-40); Mean Corpuscular HGB Conc 32.9 % (30-36); Mean Corpuscular Hemoglobin 24.2 PG (26-34); Mean Corpuscular Volume 73.6 fL (80-100); Monocytes Absolute Auto 700 /uL (0-900); Monocytes Percent Auto 7.7 % (3-14); Neutrophils Absolute Auto 5100 /uL (1500-7000); Neutrophils Percent Auto 52.7 % (50-75); Platelet Count 408 X10^3/uL (150-400); Red Blood Cell Count 4.92 X10^6/uL (4.0-5.2); Red Cell Distribution Width 16.7 % (11.6-14.8); White Blood Cell Count 9.7 X10^3/uL (4.5-11.0)
[2023-12-24 09:14] LABS: Alanine Aminotransferase 20 IU/L (<35); Albumin 4.6 g/dL (3.5-5.0); Albumin Globulin Ratio 1.6 (1.0-2.8); Alkaline Phosphatase 107 U/L (38-126); Aspartate Aminotransferase 21 IU/L (14-36); BUN Creatinine Ratio 14.5 (6-22); Bilirubin Total 0.6 mg/dL (0.2-1.3); Blood Urea Nitrogen 11 mg/dL (7-17); Calcium 10.1 mg/dL (8.4-10.2); Carbon Dioxide 20 mmol/L (22-32); Chloride 106 mmol/L (98-107); Cholesterol 213 mg/dL (140-199); Estimated Glomerular Filt Rate > 60 mL/min (>60); Globulin 2.9 g/dL (1.7-4.1); Glucose 91 mg/dL (70-100); HDL Cholesterol 50 mg/dL (40-60); HEMOLYSIS < 15 (0-50); LDL Cholesterol Calculated 125 mg/dL (<100); Potassium 3.9 mmol/L (3.4-5.1); Sodium 140 mmol/L (137-145); Total Protein 7.5 g/dL (6.3-8.2); Triglycerides 191 mg/dL (35-150)
[2023-12-24 10:03] LABS: TSH w/ Reflex to FT4 2.96 uIU/mL (0.47-4.68)
== END ==
PROVIDERS: PCP Physician Assistant Medical; Referring Provider Physician Assistant Medical; Visit Provider Physician Assistant Medical
DX: Z00.00 Encounter for general adult medical examination without abnormal findings (principal)
CPT/HCPCS: 36415; 80053; 80061; 84443; 85025

== ENCOUNTER → 2024-03-02 11:21 | Outpatient (CLI) | payer OTHER, SELFPAY | PROVIDERS: PCP Physician Assistant Medical; Referring Provider Internal Medicine; Visit Provider Internal Medicine | DX: Z23 Encounter for immunization (principal) | CPT/HCPCS: 90471; 90656 ==

== ENCOUNTER 2024-09-15 01:23 | Emergency (ER) | payer OTHER, SELFPAY ==
[2024-09-15 01:51] VITALS: BP 172/107; PULSE 100; RESP 16; TEMP 37.1; O2SAT 99; BMI 49.3
--- NOTE | 2024-09-15 01:52 | DI.RAD.S_ITS ---
PROCEDURE: XR KNEE LT 3V INDICATIONS: L knee injury TECHNIQUE: 3 views of the knee were acquired. COMPARISON: [facility], CR, XR KNEE LT 3V, 04/21/2023, 7:47. FINDINGS: Bones: No fractures or dislocations. No suspicious bony lesions. Soft tissues: No joint effusion. No suspicious soft tissue calcifications. IMPRESSION: No acute bony abnormality or significant effusion. This report is concordant with the overnight preliminary interpretation. Dictated by: Ezra Bowling M.D. on 09/15/2024 at 8:06 Approved by: Ezra Bowling M.D. on 09/15/2024 at 8:07
--- NOTE | 2024-09-15 03:37 | ED_ITS ---
HPI - Extremity Injury (Lower) General Chief Complaint: Extremity Injury, Lower Stated Complaint: L knee Injury Time Seen by Provider: 09/15/24 01:52 Source: patient, RN notes reviewed and old records reviewed Mode of arrival: Wheelchair Limitations: no limitations History of Present Illness HPI Narrative: 29-year-old female history of less meniscus repair to the left knee in 2020 presents with complaint of left knee injury. 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 Patient has had pain since. Particularly over the patellar region. Pain with movement, flexion and weight-bearing. Patient notes some swelling. There is a little bit of bruising under the patella. Patient denies any other injuries. They note they had meniscal repair in the past but no other interventions. This was performed with [facility] orthopedic surgery. Patient has not had anything for pain this evening. Denies any numbness tingling or weakness or other injuries. Related Data Home Medications ?Medication ?Instructions ?Recorded ?Confirmed sertraline 100 mg tablet 200 mg PO DAILY 12/15/1810/04 lisinopril 20 mg tablet 10 mg PO DAILY Hypertension 09/15/24 09/15/24 medroxyprogesterone 150 mg/mL 150 mg IM [id number] 09/1509/15/24 intramuscular suspension (Depo-Provera) methocarbamol 500 mg tablet 500 mg PO 3XD PRN muscle s pasm 09/15/24 09/15/24 methylprednisolone 4 mg tablets in 0 mg PO DIRECTED 09/15/24 09/15/24 a dose pack zolmitriptan 5 mg tablet 5 mg PO .as needed PRN migra ine 09/15/24 09/15/24 headache Previous Rx's ?Medication ?Instructions ?Recorded epinephrine 0.3 mg/0.3 mL 0.3 mg (0.3 mL) IM Q5-15M NE N 07/27/22 injection syringe anaphylaxis #2 ea Allergies Allergy/AdvReac Type Severity Reaction Status Date / Time garlic Allergy Severe Anaphylaxis Verified 09/15/24 01:50 cat dander Allergy Verified 09/15/24 01:50 Review of Systems Review of Systems ROS Unobtainable: All systems reviewed & are unremarkable except as noted in HPI and below Patient History Social History Smoking Status: Never smoker alcohol intake: current substance use type: does not use Smoking Status: Never smoker Exam Narrative Exam Narrative: GENERAL: Alert and oriented x three, female in mild distress HEENT: Head normocephalic, atraumatic, EOMI, pupils reactive, face symmetric, moist mucous membranes NECK: Supple, full range of motion CARDIOVASCULAR: Regular rate and rhythm without murmurs, rubs or gallops. RESPIRATORY: Breath sounds equal bilaterally, no wheezes rales or rhonchi. ABDOMEN: Soft, nontender. Normoactive bowel sounds all 4 quadrants. No guarding or rebound, rigidity, no mass : No CVA tenderness EXTREMITIES: Decreased range of motion left knee patient's most comfortable extended, tenderness over the patella generalized tenderness of the knee. There is some mild swelling there is a little bit of mild ecchymosis at the proximal tibia. Patient does not have any appreciable laxity but has discomfort with anterior-posterior drawer, valgus varus testing and tenderness with compression test., no clubbing or edema. Neurovascularly intact. No lacerations or abrasions. Sensation is intact. No edema. NEUROLOGICAL: Cranial nerves II through XII grossly intact. Moving all extremities SKIN: Warm, dry, no petechiae, no rashes or lesions. Initial Vital Signs Initial Vital Signs: Vital Signs Temperature 98.8 F 09/15/24 01:51 Pulse Rate 100 H 09/15/24 01:51 Respiratory Rate 16 09/15/24 01:51 Blood Pressure 172/107 H 09/15/24 01:51 Pulse Oximetry 99 09/15/24 01:51 Oxygen Delivery Method Room Air 09/15/24 01:51 Course Orders Ordered: ED Orders 09/15/24 01:52 XR knee LT 3V Stat Discontinued Medications Ibuprofen (Ibuprofen 400 Mg Tablet) 800 mg PO NOW ONE Stop: 09/15/24 03:45 Last Admin: 09/15/24 03:51 Dose: 800 mg Documented By: AM Vital Signs Vital signs: Vital Signs - 8 hr 09/15/24 01:51 Temperature 98.8 F Pulse Rate 100 H Respiratory Rate 16 Blood Pressure 172/107 H Pulse Oximetry 99 Oxygen Delivery Method Room Air MDM - Extremity Injury (Lower) MDM Narrative Medical decision making narrative: Left knee x-ray shows no fractures dislocations, no significant loss of joint space osteophytes erosions. No joint effusion no radiopaque foreign body. 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 X-ray does not show any acute changes. Patient does have pain has had a prior meniscal surgery on that knee. We will place a knee immobilizer, weight-bearing as tolerated with follow up with Orthopedic surgery if symptoms are persisting. Patient notes they have naproxen at home and defers anything stronger for pain. Discharge Plan Departure Patient Disposition: Home Clinical Impression: Contusion of knee, left, Sprain of left knee Instructions: DI for Knee Sprain Activity Restrictions/Additional Instructions: Follow up with your prior orthopedic surgery if your symptoms are not improving over the next week to 10 days. Do let them know that is an L and I case and provide the L and I number. You can continue with the naproxen at home you can also take acetaminophen up to a 1000 mg every 6 hours. You can weightbear as tolerated. Continue to use the knee immobilizer if having pain if symptoms resolve you do not have to continue to use crutches or knee immobilizer. Splint Care: Keep splint clean and dry. Elevated affected body part to decrease swelling. OK to use ice pack on the affected body part. Use for 15-20 minutes each time, for 5-6x per day. If you develop worsening pain, numbness, tingling, discoloration of the affected body part, loosen the splint by loosening the ISIDORO wrap, and either see your doctor for an urgent re-assessment, or return to the Emergency Department. Return to the Emergency Department for any new or worsening symptoms. Prescriptions: No Action sertraline 100 mg tablet 200 mg PO DAILY epinephrine 0.3 mg/0.3 mL syringe 0.3 mg IM Q5-15M PRN (Reason: anaphylaxis) Qty: 2 0RF Rx Instructions: do not exceed 3 doses per episode methocarbamol 500 mg tablet 500 mg PO 3XD PRN (Reason: muscle spasm) zolmitriptan 5 mg tablet 5 mg PO .as needed PRN (Reason: migraine headache) medroxyprogesterone [Depo-Provera] 150 mg/mL suspension 150 mg IM [id number] lisinopril 20 mg tablet 10 mg PO DAILY methylprednisolone 4 mg tablets,dose pack 0 mg PO DIRECTED Referrals: Zenaida Macdonald PA-C [Primary Care Provider, Medical] Stand Alone Forms: Patient Portal/API, Work Release Note
[2024-09-15] MEDS: IBUPROFEN 400 MG TABLET 800 MG PO (03:51)
== END 2024-09-15 04:09 | disposition home or self-care (01) ==
PROVIDERS: Emergency Provider Emergency Medicine; PCP Physician Assistant Medical
DX: S80.02XA Contusion of left knee, initial encounter (principal); S83.92XA Sprain of unspecified site of left knee, initial encounter; W50.0XXA Accidental hit or strike by another person, initial encounter; Y99.0 Civilian activity done for income or pay
CPT/HCPCS: 73562; 99283

== ENCOUNTER → 2024-10-05 21:01 | Outpatient (ROUT) | payer OTHER, SELFPAY ==
[2024-10-05 21:27] LABS: Add Manual Diff / Slide Review NO; Basophils Absolute Auto 0 /uL (0-100); Basophils Percent Auto 0.5 % (0-2); Eosinophils Absolute Auto 300 /uL (0-450); Eosinophils Percent Auto 3.1 % (2-4); Hemoglobin 11.8 g/dL (12.0-16.0); Lymphocytes Absolute Auto 3400 /uL (1100-4500); Lymphocytes Percent Auto 33.4 % (25-40); Mean Corpuscular HGB Conc 32.9 % (30-36); Mean Corpuscular Hemoglobin 24.9 PG (26-34); Mean Corpuscular Volume 75.8 fL (80-100); Monocytes Absolute Auto 400 /uL (0-900); Monocytes Percent Auto 4.4 % (3-14); Neutrophils Absolute Auto 6000 /uL (1500-7000); Neutrophils Percent Auto 58.6 % (50-75); Platelet Count 385 X10^3/uL (150-400); Red Blood Cell Count 4.75 X10^6/uL (4.0-5.2); Red Cell Distribution Width 16.4 % (11.6-14.8); White Blood Cell Count 10.2 X10^3/uL (4.5-11.0)
[2024-10-05 21:49] LABS: Erythrocyte Sedimentation Rate 51 MM/HR (0-20)
[2024-10-05 22:17] LABS: TSH w/ Reflex to FT4 1.18 uIU/mL (0.47-4.68)
[2024-10-05 22:18] LABS: Alanine Aminotransferase 29 IU/L (<35); Albumin 4.2 g/dL (3.5-5.0); Albumin Globulin Ratio 1.4 (1.0-2.8); Alkaline Phosphatase 115 U/L (38-126); Aspartate Aminotransferase 27 IU/L (14-36); BUN Creatinine Ratio 17.7 (6-22); Bilirubin Total 0.5 mg/dL (0.2-1.3); Blood Urea Nitrogen 11 mg/dL (7-17); C-Reactive Protein Quant 3.8 mg/dL (<1.0); Calcium 9.5 mg/dL (8.4-10.2); Carbon Dioxide 17 mmol/L (22-32); Chloride 108 mmol/L (98-107); Cholesterol 206 mg/dL (140-199); Estimated Glomerular Filt Rate > 60 mL/min (>60); Glucose 159 mg/dL (70-99); HDL Cholesterol 58 mg/dL (40-60); HEMOLYSIS < 15 (0-50); LDL Cholesterol Calculated 129 mg/dL (<100); Potassium 4.1 mmol/L (3.4-5.1); Sodium 138 mmol/L (137-145); Total Protein 7.2 g/dL (6.3-8.2); Triglycerides 95 mg/dL (35-150); Uric Acid 7.2 mg/dL (2.5-6.2)
[2024-10-05 22:34] LABS: Rheumatoid Factor < 8.6 IU/mL (<12.0)
== END ==
PROVIDERS: PCP Physician Assistant Medical; Visit Provider Physician Assistant Medical
DX: Z00.00 Encounter for general adult medical examination without abnormal findings (principal); E78.5 Hyperlipidemia, unspecified; M25.50 Pain in unspecified joint; M10.9 Gout, unspecified
CPT/HCPCS: 36415; 80053; 80061; 84443; 84550; 85025; 85651; 86038; 86140; 86430